=== PATIENT | male | born 1955 | race Asian ===

== ENCOUNTER 2016-09-21 07:58 | Day surgery (SDC) | payer OTHER, MEDICAID ==
[2016-09-21] MEDS ORDERED: LIDOCAINE 1% 5 ML SDV ONE (08:17)
[2016-09-21] MEDS ORDERED: LIDOCAINE 2% 100 MG/5 ML SYR IVP ONE (09:10)
[2016-09-21] MEDS ORDERED: PROPOFOL 200 MG/20 ML VIAL ONE ×2 (09:10→09:26)
[2016-09-21] MEDS ORDERED: PHENYLEPHRINE HCL 100 MCG/ML SYR ONE (09:40)
[2016-09-21] MEDS ORDERED: LR 1,000 ML IV ONE (09:59)
[2016-09-21] MEDS ORDERED: LIDOCAINE 1% 5 ML SDV ID PRN (09:59)
--- NOTE | 2016-09-21 10:20 | GPN ---
PREPROCEDURE DIAGNOSIS: Need for screening colonoscopy. POSTPROCEDURE DIAGNOSIS: Colon polyps, status post removal. MEDICATIONS: Monitored anesthesia care. PROCEDURE: Colonoscopy with biopsies. INDICATIONS: The patient is a 60-year-old gentleman with a history of heart transplant, hepatitis B , and monoclonal gammopathy of unknown significance, who presents for a screening colonoscopy. The risks and the benefits of the procedure were discussed with the patient and consent obtained. Risks include, but not limited to, bleeding, perforation, and risks related to sedation. The patient is ASA class 3. DESCRIPTION OF PROCEDURE: The pediatric colonoscope was advanced into the terminal ileum, which stuart eared normal. The cecum showed a 2 mm polyp, which was removed using cold biopsy forceps and sent t o pathology. The ascending colon was normal. The transverse colon was normal. The descending colo n was normal. Three polyps were removed from the sigmoid colon, measuring 1-2 mm in size, with cold biopsy forceps. Two polyps were removed from the rectum, measuring 1-2 mm in size, with cold biops y forceps and sent off to pathology. Retroflexed views in the rectum were otherwise normal. IMPRESSION: Small colon polyps, status post removal. RECOMMENDATION: 1. Discharge to home with escort. 2. Advance diet as tolerated. 3. Continue current medications. 4. Repeat colonoscopy in 3 years if 3 or more polyps are found to be adenomatous. Otherwise, repea t colonoscopy in 5 years. Pathology is available within 10 days. We will call with the results. Thank you for allowing me to participate in the care of your patient. /[id number]/MODL
== END 2016-09-21 10:55 | disposition home or self-care (01) ==
LOC: FSGY 07:58
PROVIDERS: ATTEND Internal Medicine Gastroenterology
PROC: 0DBH8ZX Excision of Cecum, Via Natural or Artificial Opening Endoscopic, Diagnostic (ICD-10-PCS; principal; 2016-09-21 09:45)
PROC: 0DBN8ZX Excision of Sigmoid Colon, Via Natural or Artificial Opening Endoscopic, Diagnostic (ICD-10-PCS; principal; 2016-09-21 09:45)
PROC: 0DBP8ZX Excision of Rectum, Via Natural or Artificial Opening Endoscopic, Diagnostic (ICD-10-PCS; principal; 2016-09-21 09:45)
DX: Z12.11 Encounter for screening for malignant neoplasm of colon (principal); K63.5 Polyp of colon; K62.1 Rectal polyp; Z94.1 Heart transplant status; E11.9 Type 2 diabetes mellitus without complications; D47.2 Monoclonal gammopathy; I50.9 Heart failure, unspecified; I11.0 Hypertensive heart disease with heart failure; B19.10 Unspecified viral hepatitis B without hepatic coma; G40.909 Epilepsy, unspecified, not intractable, without status epilepticus
CPT/HCPCS: J2001; J2370; J2704